=== PATIENT | female | born 1995 | race Caucasian/White ===

== ENCOUNTER → 2016-08-30 | Day surgery (SDC) | payer OTHER ==
[~2016-08-30] MED LIST: AMIT10TA13 PO; AVIATAB PO; BUPIVACAINE HCL PF 0.25% 30 ML VIAL ONE; CYCL-36 PO; GABA300 PO; HYDR-3580 PO; KETOROLAC TROMETHAMINE 30 MG/ML (IVP) VIAL IV PUSH ONE; LACTATED RINGER'S 1000 ML INJ 1,000 ML ONE; MIDAZOLAM HCL 2 MG/2 ML VIAL ONE; ONDANSETRON HCL 4 MG/2 ML VIAL IV PUSH ONE; PROPOFOL 200 MG/20 ML AMP IV ONE; ceFAZolin INJ 1,000 MG VIAL ONE; oxyCODONE/ACETAMINOPHEN 5 MG/325 MG TAB ONE
--- NOTE | 2016-09-01 09:33 | MP ---
cc: MARIEL YBARRA MD DATE OF SURGERY 08/30/2016 PREOPERATIVE DIAGNOSIS Left labial tear POSTOPERATIVE DIAGNOSIS Left labial tear SURGEON Mariel Ybarra MD SET O TYPE OPERATOR [place] staff PROCEDURE PERFORMED Primary repair under anesthesia left labioplasty ANESTHESIA General LMA ESTIMATED BLOOD LOSS Minimal COMPLICATIONS None IV FLUIDS 1200 mL URINE OUTPUT 50 mL INTRAOPERATIVE FINDINGS The left labia at midpoint there is a 4 cm perpendicular tear of the labia with an ulceration at the base and separation of the superior and inferior aspect of approximately 3 mL at the base. PROCEDURE IN DETAIL After review of informed consent, the patient was taken to the operating room where general LMA was performed without complication. The patient placed in the dorsal lithotomy position in candy cane stirrups. The perineum was prepped and draped in normal sterile fashion. A red rubber was used to drain the bladder. The left labial defect was resected in a triangular fashion. The labia was approximated with 3-0 Monocryl. The submucosal tissue was approximated in a running fashion and then a subcuticular stitch was used to reapproximate the mucosa. Anesthesia was removed without complication. After the patient was placed in the supine position, she was taken to PACU in stable condition. Counts were correct. SCD's were placed on the bilateral extremities and the patient did receive Ancef 2 grams IV pre-incision. Mariel Ybarra MD PE/TRISTAN /1:50 PM /9:18 AM
== END | disposition home or self-care (01) ==
LOC: ESDC 11:26
PROVIDERS: ATTEND Obstetrics & Gynecology
DX: S30.95XA Unspecified superficial injury of vagina and vulva, initial encounter (principal)
CPT/HCPCS: 00906; 56620; J0690; J1885; J2250; J2405; J3010; J7120

== ENCOUNTER 2016-10-20 07:27 | Inpatient (IN) | payer OTHER ==
[~2016-10-20] VITALS: Ht 165.1 cm; Wt 77.3 kg
[~2016-10-20 07:27] MED LIST changes: -BUPIVACAINE HCL PF 0.25% 30 ML VIAL ONE; -KETOROLAC TROMETHAMINE 30 MG/ML (IVP) VIAL IV PUSH ONE; -LACTATED RINGER'S 1000 ML INJ 1,000 ML ONE; -MIDAZOLAM HCL 2 MG/2 ML VIAL ONE; -ONDANSETRON HCL 4 MG/2 ML VIAL IV PUSH ONE; -PROPOFOL 200 MG/20 ML AMP IV ONE; -ceFAZolin INJ 1,000 MG VIAL ONE; -oxyCODONE/ACETAMINOPHEN 5 MG/325 MG TAB ONE
[2016-10-20 07:30] VITALS: BP 136/82; PULSE 125; RESP 19; TEMP 99.3; O2SAT 100
[2016-10-20] MEDS ORDERED: CYCL1TAB29 PO (07:49)
[2016-10-20] MEDS ORDERED: VENL75TA PO (07:49)
[2016-10-20] MEDS ORDERED: OXYC15TA PO (07:49)
[2016-10-20] MEDS ORDERED: GABA600T PO (07:49)
[2016-10-20] MEDS ORDERED: ORSYTAB PO (07:53)
[2016-10-20] MEDS ORDERED: MILK200C2 PO (07:53)
[2016-10-20] MEDS ORDERED: BIOTCAP PO (07:53)
[2016-10-20] MEDS ORDERED: IBUP400T20 PO (07:53)
[2016-10-20] MEDS ORDERED: AMIT50TA3 PO (07:53)
[2016-10-20] MEDS ORDERED: PANT20TA2 PO (07:53)
[2016-10-20] MEDS ORDERED: DIPH25CA PO (07:53)
[2016-10-20] MEDS ORDERED: OMEGCAP PO (07:53)
[2016-10-20] MEDS ORDERED: SODIUM CHLORIDE 0.9% FLUSH 10 ML FLUSH IVF PRN (08:00)
--- NOTE | 2016-10-20 08:07 | PD ---
HPI Chief Complaint: OD/ Ingestion Time Seen by Provider: 07:46 Travel History International Travel<30 days: No Contact w/Intl Traveler<30days: No Traveled to known affect area: No History of Present Illness HPI The patient was seen and examined in the presence of the nurse. This patient reports that she overdosed on Benadryl. She has history of depression and admits to being depressed but states he just wanted to go to sleep. She denies herself or feeling suicidal. Patient suffers from severe polypharmacy. She is on 3 times a day oxycodone and muscle relaxants and several other sedating medications and says she has fibromyalgia since the age of 11. She says she normally takes between 25 and 100 mg of Benadryl nightly to sleep. Last night she took 125 mg at 1 AM and 125 mg at 2 AM and an additional 125 mg at 3:30 AM. At this time she says she feels drowsy. Symptoms severity is moderate. No alleviating factors. Duration 7 hours. Denies alcohol or drug use other than prescribed medications. PFSH Past Medical History Hx Anticoagulant Therapy: No ADHD: No Autoimmune Disease: Yes (RHEUMATOID ARTHRITIS) Anxiety: Yes Depression: Yes Cancer: No Cardiovascular Problems: No Chemotherapy: No Cerebrovascular Accident: No Diabetes: No Diminished Hearing: No Fibromyalgia: Yes Musculoskeletal: Yes (SCOLIOSIS AND DDD) Psychiatric: Yes (DEPRESSION) Respiratory: Yes (BRONCHITIS, PNEUMONIA) Immunizations Current: Yes Migraines: Yes (occassionally) Seizures: No Thyroid Disease: No Ulcer: No ?: Not LMP: CURRENTLY ON PERIOD : 0 Para: 0 Miscarriage: 0 Past Surgical History Tonsillectomy: Yes Other Surgery: Yes Social History Alcohol Use: No Tobacco Use: No Substance Use: No Allergies-Medications (Allergen,Severity, Reaction): Coded Allergies: morphine (Verified Allergy, Severe, 10/20/16) allergy trazodone (Unverified Adverse Reaction, Unknown, Headache, 09/19/16) Reported Meds & Prescriptions Reported Meds & Active Scripts Active Reported Diphenhydramine (Diphenhydramine HCl) 25 Mg Cap 100 Mg PO HS PRN Milk Thistle (Milk Thistle Seed Extract) 200 Mg Capsule 1 Cap PO DAILY [place]-3 Fish Oil/Vitamin (Fish Oil-Cholecalciferol) 1,000-1,000 Mg Cap 1 Cap PO DAILY Biotin 5 Mg Cap 5 Mg PO DAILY Ibuprofen 400 Mg Tab 400 Mg PO DAILY PRN Pantoprazole (Pantoprazole Sodium) 20 Mg Tab 20 Mg PO DAILY Amitriptyline (Amitriptyline HCl) 50 Mg Tab 50 Mg PO HS Orsythia (Levonorgestrel-Ethinyl Estradiol) 0.1-20 mg-mcg Tab 1 Tab PO DAILY Oxycodone (Oxycodone HCl) 15 Mg Tab 15 Mg PO TID PRN Flexeril (Cyclobenzaprine HCl) 10 Mg Tab 10 Mg PO HS Gabapentin 600 Mg Tab 600 Mg PO TID Effexor (Venlafaxine HCl) 75 Mg Tab 3 Cap PO DAILY Review of Systems General / Constitutional: No: Fever Eyes: No: Visual changes HENT: No: Headaches Cardiovascular: Positive: Tachycardia, No: Chest Pain or Discomfort Respiratory: No: Shortness of Breath Gastrointestinal: No: Abdominal Pain Genitourinary: No: Dysuria Musculoskeletal: No: Pain Skin: No Rash Neurologic: Positive: Change in Mentation, No: Weakness Psychiatric: Positive: Depression Endocrine: No: Polydipsia Hematologic/Lymphatic: No: Easy Bruising Physical Exam Narrative GENERAL: Well-nourished, well-developed patient in no apparent distress. SKIN: Focused skin assessment reveals no rash and nodules. Skin is Warm and dry. HEAD: Atraumatic. Normocephalic. EYES: Pupils equal and round. No scleral icterus. No injection or drainage. ENT: No nasal bleeding or discharge. Mucous membranes pink and moist. NECK: Trachea midline. No JVD. CARDIOVASCULAR: Regular rate and rhythm. No murmur appreciated. Tachycardic 120 RESPIRATORY: No accessory muscle use. Clear to auscultation. Breath sounds equal bilaterally. GASTROINTESTINAL: Abdomen soft, non-tender, nondistended. Hepatic and splenic margins not palpable. MUSCULOSKELETAL: No obvious deformities. No clubbing. No cyanosis. No edema. NEUROLOGICAL: Awake and alert. No obvious cranial nerve deficits. Motor grossly within normal limits. Normal speech. PSYCHIATRIC: Depressed mood and flat affect; insight and judgment poor . Data Data Last Documented VS Vital Signs Date Time Temp Pulse Resp B/P (MAP) Pulse Ox O2 Delivery O2 Flow Rate FiO2 10/20/16 13:46 102 18 128/64 (85) 97 Room Air 10/20/16 07:30 99.3 Orders Orders Electrocardiogram (10/20/16 07:59) Complete Blood Count With Diff (10/20/16 07:59) Comprehensive Metabolic Panel (10/20/16 07:59) Iv Access Insert/Monitor (10/20/16 07:59) Ecg Monitoring (10/20/16 07:59) Oximetry (10/20/16 07:59) Psych Screen (10/20/16 07:59) Sodium Chloride 0.9% Flush (Ns Flush) (10/20/16 08:00) Call Poison Control (10/20/16 07:59) Drug Screen, Random Urine (10/20/16 07:59) Alcohol (Ethanol) (10/20/16 07:59) Salicylates (Aspirin) (10/20/16 07:59) Tylenol (Acetaminophen) (10/20/16 07:59) Ed Urine Pregnancytest Poc (10/20/16 08:07) Sodium Chlor 0.9% 1000 Ml Inj (Ns 1000 M (10/20/16 08:45) Ondansetron Inj (Zofran Inj) (10/20/16 09:00) Ondansetron Inj (Zofran Inj) (10/20/16 08:56) Labs Laboratory Tests Test 10/20/16 08:11 10/20/16 08:22 White Blood Count 9.3 TH/MM3 Red Blood Count 4.38 MIL/MM3 Hemoglobin 13.7 GM/DL Hematocrit 39.7 % Mean Corpuscular Volume 90.6 FL Mean Corpuscular Hemoglobin 31.3 PG Mean Corpuscular Hemoglobin Concent 34.5 % Red Cell Distribution Width 12.5 % Platelet Count 286 TH/MM3 Mean Platelet Volume 7.8 FL Neutrophils (%) (Auto) 76.9 % Lymphocytes (%) (Auto) 17.6 % Monocytes (%) (Auto) 5.0 % Eosinophils (%) (Auto) 0.1 % Basophils (%) (Auto) 0.4 % Neutrophils # (Auto) 7.2 TH/MM3 Lymphocytes # (Auto) 1.6 TH/MM3 Monocytes # (Auto) 0.5 TH/MM3 Eosinophils # (Auto) 0.0 TH/MM3 Basophils # (Auto) 0.0 TH/MM3 CBC Comment DIFF FINAL Differential Comment Blood Urea Nitrogen 8 MG/DL Creatinine 0.86 MG/DL Random Glucose 90 MG/DL Total Protein 8.1 GM/DL Albumin 4.0 GM/DL Calcium Level 9.2 MG/DL Alkaline Phosphatase 96 U/L Aspartate Amino Transf (AST/SGOT) 17 U/L Alanine Aminotransferase (ALT/SGPT) 37 U/L Total Bilirubin 0.3 MG/DL Sodium Level 138 MEQ/L Potassium Level 3.8 MEQ/L Chloride Level 104 MEQ/L Carbon Dioxide Level 24.9 MEQ/L Anion Gap 9 MEQ/L Estimat Glomerular Filtration Rate 83 ML/MIN Salicylates Level 1.8 MG/DL Acetaminophen Level LESS THAN 2.0 MCG/ML Ethyl Alcohol Level LESS THAN 3 MG/DL Urine Opiates Screen NEG Urine Barbiturates Screen NEG Urine Amphetamines Screen NEG Urine Benzodiazepines Screen NEG Urine Cocaine Screen NEG Urine Cannabinoids Screen NEG MDM Medical Decision Making Medical Screen Exam Complete: Yes Emergency Medical Condition: Yes Medical Record Reviewed: Yes Differential Diagnosis Overdose, overmedication, suicidal ideation, depression, poor judgment, polypharmacy Narrative Course I have reviewed the patient's electronic medical record. Here multiple times for minor things before. She has had overdose in the past. IV placed CBC is normal Metabolic profile is normal LFTs are normal I reviewed her EKG which shows sinus tachycardia 116 and regular Extended cardiac monitoring reveals sinus tachycardia without ectopy Tylenol and aspirin levels are negative Alcohol is negative Urine is negative Drug screen curiously negative even for opiate which she takes 3 times a day Nurse has discussed with poison flight control tower operator to get specific recommendations. I ordered psychiatric evaluation to make sure this patient is not a danger to herself. I will observe her for 3 hours and she is as medically stable as can be made. Poison control did not have anything else to add. Her tachycardia has resolved. Current heart rate is 90. Mental status is normal. No anticholinergic findings at this time. Psych screener has contacted the patient's outpatient psychiatry discuss the situation. The psychiatrist is concerned and requests that I placed the patient under Reddy act for her safety. I have done that. She will be kept in psychiatry until stabilized Diagnosis Primary Impression: Overdose Qualified Codes: T50.904A - Poisoning by unspecified drugs, medicaments and biological substances, undetermined, initial encounter Additional Impression: Depression Qualified Codes: F33.9 - Major depressive disorder, recurrent, unspecified Admitting Information Admitting Physician Requests: Admit Bon Okeefe MD Oct 20, 2016 08:07
[2016-10-20 08:21] LABS: AUTOMATED NEUTROPHIL # 7.2 TH/MM3 (1.8-7.7); BASOPHIL % 0.4 % (0.0-2.0); EOSINOPHIL % 0.1 % (0.0-4.0); HEMATOCRIT 39.7 % (35.0-46.0); HEMO FLAGS DIFF FINAL; LYMPH % 17.6 % (9.0-44.0); LYMPHOCYTE # 1.6 TH/MM3 (1.0-4.8); MEAN CELL VOLUME 90.6 FL (80.0-100.0); MEAN CORPUSCULAR HEMOGLOBIN 31.3 PG (27.0-34.0); MEAN CORPUSCULAR HGB CONC 34.5 % (32.0-36.0); NEUT % 76.9 % (16.0-70.0); PLATELET COUNT 286 TH/MM3 (150-450); RED BLOOD COUNT 4.38 MIL/MM3 (4.00-5.30); RED CELL DISTRIBUTION WIDTH 12.5 % (11.6-17.2); WHITE BLOOD COUNT 9.3 TH/MM3 (4.0-11.0)
[2016-10-20 08:43] LABS: ALT (GPT) 37 U/L (10-53); ANION GAP 9 MEQ/L (5-15); AST (GOT) 17 U/L (15-37); BICARBONATE 24.9 MEQ/L (21.0-32.0); BLOOD UREA NITROGEN 8 MG/DL (7-18); CHLORIDE 104 MEQ/L (98-107); GLOMERULAR FILTRATION RATE 83 ML/MIN (>89); POTASSIUM 3.8 MEQ/L (3.5-5.1); SODIUM (NA) 138 MEQ/L (136-145)
[2016-10-20] MEDS ORDERED: SODIUM CHLOR 0.9% 1000 ML INJ 1,000 ML IV ONE (08:45)
[2016-10-20 08:46] LABS: ALKALINE PHOSPHATASE 96 U/L (45-117); TOTAL BILIRUBIN ADULT 0.3 MG/DL (0.2-1.0)
[2016-10-20 08:48] LABS: ACETAMINOPHEN LESS THAN 2.0 MCG/ML (10.0-30.0); ALCOHOL LESS THAN 3 MG/DL (0-5)
[2016-10-20] MEDS ORDERED: ONDANSETRON HCL 4 MG/2 ML VIAL ONE (08:56)
[2016-10-20] MEDS ORDERED: ONDANSETRON HCL 4 MG/2 ML VIAL IV ONE (09:00)
[2016-10-20 13:46] VITALS: BP 128/64; PULSE 102; RESP 18; O2SAT 97
--- NOTE | 2016-10-20 13:59 | EKG ---
Date Performed: 10/20/2016 Time Performed: 07:56:08 PTAGE: 21 years EKG: SINUS TACHYCARDIA NONSPECIFIC T-WAVE ABNORMALITY ABNORMAL RHYTHM ECG NO PREVIOUS TRACING DOCTOR: Eddie Galan Interpretating Date/Time 10/20/2016 13:59:12
[2016-10-20] MEDS ORDERED: LORazepam 0.5 MG TAB PO PRN (17:15)
[2016-10-20] MEDS ORDERED: LORazepam 2 MG/ML VIAL IM PRN (17:15)
[2016-10-20 17:53] VITALS: BP 134/88; PULSE 82; RESP 18; TEMP 98.2; O2SAT 99
[2016-10-21 06:33] VITALS: BP 124/59; PULSE 91; RESP 17; TEMP 97.6; O2SAT 98
[2016-10-21] MEDS ORDERED: LEVONORGESTREL ETHINYL ESTRADIOL PO SCH (09:00)
[2016-10-21] MEDS: VENLAFAXINE HCL XR 75 MG CAP PO SCH (09:02)
[2016-10-21] MEDS: PANTOPRAZOLE SOD 20 MG DELAYED RELEASE TAB PO SCH (09:03)
[2016-10-21] MEDS: GABAPENTIN 300 MG CAP PO SCH ×3 (09:03→18:19)
[2016-10-21 14:23] LABS: FREE T4 0.99 NG/DL (0.76-1.46); HDL CHOLESTEROL 48.2 MG/DL (40.0-60.0); LDL CHOLESTEROL 172 MG/DL (0-99)
[2016-10-21 16:00] VITALS: BP 138/65; PULSE 95; RESP 18; TEMP 98.4; O2SAT 99
[2016-10-21 18:00] VITALS: BP 138/65; PULSE 95; RESP 18; TEMP 98.4; O2SAT 99
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
[2016-10-21] MEDS: CYCLOBENZAPRINE HCL 10 MG TAB PO SCH (21:35)
[2016-10-22 06:10] VITALS: BP 119/66; PULSE 77; RESP 16; TEMP 98; O2SAT 100
[2016-10-22] MEDS: VENLAFAXINE HCL XR 75 MG CAP PO SCH (08:41)
[2016-10-22] MEDS: PANTOPRAZOLE SOD 20 MG DELAYED RELEASE TAB PO SCH (08:41)
[2016-10-22] MEDS: GABAPENTIN 300 MG CAP PO SCH ×3 (08:41→17:09)
[2016-10-22 10:30] LABS: HEMOGLOBIN A1a 0.8 %; HEMOGLOBIN A1b 0.9 %; HEMOGLOBIN Ao 86.3 %; HEMOGLOBIN F 1.4 %; HEMOGLOBIN LA1C 1.9 %; HEMOGLOBIN P3 3.1 %
[2016-10-22] MEDS: CYCLOBENZAPRINE HCL 10 MG TAB PO SCH (20:09)
[2016-10-23 06:28] VITALS: BP 121/64; PULSE 85; RESP 16; TEMP 98
[2016-10-23] MEDS: VENLAFAXINE HCL XR 75 MG CAP PO SCH (09:18)
[2016-10-23] MEDS: PANTOPRAZOLE SOD 20 MG DELAYED RELEASE TAB PO SCH (09:18)
[2016-10-23] MEDS: GABAPENTIN 300 MG CAP PO SCH ×2 (09:18→13:00)
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
== END 2016-10-23 15:45 | disposition home or self-care (01) | DRG 918 ==
LOC: NEPE 07:27 → NEDA 16:42 → H260 17:23
PROVIDERS: ADMIT Psychiatry & Neurology Psychiatry; ATTEND Psychiatry & Neurology Psychiatry
DX: T45.0X1A Poisoning by antiallergic and antiemetic drugs, accidental (unintentional), initial encounter (principal); F33.9 Major depressive disorder, recurrent, unspecified; F41.9 Anxiety disorder, unspecified; M06.9 Rheumatoid arthritis, unspecified; M79.7 Fibromyalgia; F43.10 Post-traumatic stress disorder, unspecified; E78.5 Hyperlipidemia, unspecified; M41.9 Scoliosis, unspecified; G89.29 Other chronic pain; M54.9 Dorsalgia, unspecified
CPT/HCPCS: 80053; 80061; 80307; 83036; 84439; 84443; 84703; 85025; 93005; 96361; 96374; J2405; J7030